=== PATIENT | female | born 1965 | race African-American/Black ===

== ENCOUNTER → 2016-08-03 | Outpatient (CLI) | payer OTHER ==
--- NOTE | 2016-08-03 17:04 | KCIC ---
PROCEDURE Bilateral digital mammogram with CAD HISTORY Routine screening TECHNIQUE Bilateral digital routine views were obtained with computer-aided detection. COMPARISON January 21, 2012 FINDINGS Density B: Mixed fatty and fibroglandular tissue. There is asymmetric tissue density seen in the left breast in the CC view only. There is no suspicious calcifications or areas of architectural distortion. IMPRESSION Recommend patient return for a rolled CC view and true lateral view of left breast. Ultrasound may be necessary as well. [The patient and the clinical service will be contacted by the Radiology staff for further instructions.] This study was interpreted with the benefit of Computerized Aided Detection (CAD). Mammography is not 100% sensitive in detecting breast cancer. Therefore, a self breast exam and a clinical breast exam are very important. A negative mammogram does not negate a clinically suspicious finding and should not result in a delay in biopsying a clinically suspicious abnormality. BI-RADS category 0: Incomplete. Electronically signed by: Christiano Skinner MD (Aug 03, 2016 17:03:32)
== END | disposition home or self-care (01) ==
LOC: KCIC MAMMO 15:39
PROVIDERS: ATTEND Family Medicine
DX: Z12.31 Encounter for screening mammogram for malignant neoplasm of breast (principal)
CPT/HCPCS: G0202; 77067

== ENCOUNTER → 2016-08-11 | Outpatient (CLI) | payer OTHER ==
--- NOTE | 2016-08-11 14:09 | KCIC ---
Diagnostic digital mammograms left breast: Reason for examination: Asymmetry in the left breast on screening mammogram. Comparison is made to previous study dated 08/03/2016. Additional lateral and rolled CC views were obtained of the left breast. With these additional views, the area of asymmetry appears to resolve and probably reflected some superimposition of tissues. Further evaluation with ultrasound will follow. Impression: No suspicious abnormalities with the additional views. Ultrasound to follow. BI-RADS category 0: Incomplete. Ultrasound to follow. Left breast ultrasound: Ultrasound examination of the left breast was performed. There is some cystic ductal ectasia in the retroareolar 12 o'clock position. No other cystic or solid lesions are seen in the breast. No abnormal lymph nodes are seen in the left axilla. 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 No other focal abnormalities in the left breast. Recommend routine mammographic followup. BI-RADS category 2: Benign. This patient's information has been entered into a reminder system for the patient to be notified with the results of this examination and a target date for her next mammograms. Electronically signed by: Carolina Carrera MD (Aug 11, 2016 14:07:39)
== END | disposition home or self-care (01) ==
LOC: KCIC MAMMO 13:01
PROVIDERS: ATTEND Family Medicine
DX: R92.8 Other abnormal and inconclusive findings on diagnostic imaging of breast (principal)
CPT/HCPCS: 76641; G0206; 77065